=== PATIENT | female | born 1965 | race Caucasian/White ===

== ENCOUNTER 2019-01-07 11:00 | Day surgery (SDC) | payer OTHER ==
[~2019-01-07] VITALS: Ht 162.6 cm; Wt 78.1 kg
[2019-01-07 11:53] VITALS: Ht 162.6 cm; Wt 78.1 kg
[2019-01-07] MEDS ORDERED: MIDAZOLAM 1 MG/ML 2 ML INJ ONE ×2 (12:34)
[2019-01-07] MEDS ORDERED: FENTAnyl 50 MCG/ML VIAL ONE (12:34)
--- NOTE | 2019-01-08 06:11 | CONS ---
DATE OF ADMISSION: 01/07/2019 DATE OF CONSULTATION: PATIENT NAME: SHEREE PETERS I thank you very much for this kind referral. HISTORY OF PRESENT ILLNESS: Ms. Sheree Peters is a 53-year-old female patient who has been referre d to me for further evaluation of change in the bowel habit. No past history of colon neoplasm. The patient never had screening colonoscopy. Appetite is good. No weight loss. No upper abdominal jm n. Not on nonsteroidal anti-inflammatory agents. No history of gallstones or liver disease. Not a hypertensive or diabetic. No heart disease, lung problem or kidney disease. SOCIAL HISTORY: Nonsmoker. No alcohol abuse. FAMILY HISTORY: No family history of gastrointestinal tract neoplasm. ALLERGIES: NO DRUG ALLERGIES. MEDICATIONS: None. PHYSICAL EXAMINATION: VITAL SIGNS: She is 5 feet 4 inches tall and weighs 167 pounds. HEART: Normal heart sounds. LUNGS: Clear. ABDOMEN: Soft. No masses. Normal bowel sounds. NEUROLOGIC: Normal neurological exam. IMPRESSION: 1. Change in the bowel habit. 2. The patient never had screening colonoscopy. PLAN: Screening colonoscopy. The procedure and possible complications were well explained to the patient. She understands and con sents to the procedure. I thank you once again. With warmest personal regards, Dictated By: USMAN VALERIO/SOPHIE Conf#: [id number] DID#: [id number]
== END 2019-01-07 13:56 | disposition home or self-care (01) ==
LOC: GIL 11:00
PROVIDERS: ATTEND Internal Medicine Gastroenterology
DX: Z12.11 Encounter for screening for malignant neoplasm of colon (principal); K64.8 Other hemorrhoids; D12.5 Benign neoplasm of sigmoid colon
CPT/HCPCS: 45380; 88305; J2250; J3010; Z7610